=== PATIENT | male | born 1990 | race Caucasian/White ===

== ENCOUNTER → 2017-03-29 | Outpatient (REF) | payer OTHER | LOC: M SFHCLERA 13:27 | DX: J02.9 Acute pharyngitis, unspecified (principal) ==

== ENCOUNTER → 2023-07-31 | Outpatient (CLI) | payer OTHER | LOC: M RAD 07:08 | PROVIDERS: ATTEND Orthopaedic Surgery Hand Surgery | DX: M25.561 Pain in right knee (principal); G89.29 Other chronic pain ==